=== PATIENT | male | born 1990 | race Caucasian/White ===

== ENCOUNTER 2023-01-29 13:46 | Emergency (ER) | payer BC ==
[2023-01-29 13:52] VITALS: BP 121/74; PULSE 91; RESP 20; TEMP 98.4; BMI 22.9
[2023-01-29] MEDS ORDERED: BACITRACIN ZINC 15 GM TUBE TOPICAL OINTMENT ONE (15:10)
== END 2023-01-29 15:23 | disposition home or self-care (01) ==
LOC: JERFT 13:46
DX: S61.012A Laceration without foreign body of left thumb without damage to nail, initial encounter (principal); W26.8XXA Contact with other sharp object(s), not elsewhere classified, initial encounter
CPT/HCPCS: 99282-25